=== PATIENT | female | born 1965 | race Caucasian/White ===

== ENCOUNTER 2020-06-21 06:48 | Emergency (ER) | payer OTHER ==
[~2020-06-21] VITALS: Ht 149.9 cm; Wt 94.8 kg
[2020-06-21 06:59] VITALS: BP 112/79
== END 2020-06-21 09:08 | disposition home or self-care (01) ==
LOC: ER 06:53
DX: S16.1XXA Strain of muscle, fascia and tendon at neck level, initial encounter (principal); K21.9 Gastro-esophageal reflux disease without esophagitis; Z90.49 Acquired absence of other specified parts of digestive tract; Z98.890 Other specified postprocedural states; X58.XXXA Exposure to other specified factors, initial encounter; Y93.89 Activity, other specified; Y92.89 Other specified places as the place of occurrence of the external cause; Y99.8 Other external cause status